=== PATIENT | male | born 1960 | race Caucasian/White ===

== ENCOUNTER → 2023-12-01 06:29 | Day surgery (SDC) | payer BC, SELFPAY | LOC: GI 06:29 | PROVIDERS: ATTENDING PHYSICIAN Specialist | DX: Z12.11 Encounter for screening for malignant neoplasm of colon (principal); Z83.72 Family history of familial adenomatous polyposis; D12.2 Benign neoplasm of ascending colon; D12.3 Benign neoplasm of transverse colon; D12.5 Benign neoplasm of sigmoid colon; K22.2 Esophageal obstruction; K22.89 Other specified disease of esophagus; K20.90 Esophagitis, unspecified without bleeding | CPT/HCPCS: 43249; 45385; 45380; 43239; 88305 ==

== ENCOUNTER → 2024-04-14 06:29 | Outpatient (REF) | payer BC, SELFPAY | LOC: MRI 3T 06:29 | PROVIDERS: ATTENDING PHYSICIAN Orthopaedic Surgery; FAMILY PHYSICIAN Family Medicine | DX: M84.30XA Stress fracture, unspecified site, initial encounter for fracture (principal) | CPT/HCPCS: 73721 ==